=== PATIENT | female | born 2005 | race Hispanic/Latino ===

== ENCOUNTER 2024-02-08 18:21 | Emergency (ER) | payer OTHER ==
[2024-02-08 19:59] LABS: SARS-CoV-2 Antigen CONTROL BLUE LINE VIS/BG OK; SARS-CoV-2 Antigen Rapid Res Negative (Negative)
--- NOTE | 2024-02-08 21:18 | ER ---
Nurse's Notes [facility] Name: Neeta Oates Age: 18 yrs Sex: Female : 2005 Arrival Date: 02/08/2024 Time: 18:21 Bed DIS6 Private MD: Diagnosis: Cough;Acute pharyngitis, unspecified Presentation: 02/07 18:32 Chief complaint: Patient states: Fever, cough, sore throat, [place]CG[place] since Sunday. ll1 Daughter has similar symptoms. Approximately 12 weeks G2, P1. Coronavirus screen: Client denies travel out of the [place] in the last 14 days. cough unrelated to allergies, fatigue, fever, headache, muscle pain, sore throat, Client presents with at least one sign or symptom that may indicate coronavirus-19. Standard/surgical mask placed on the client. Ebola Screen: Patient denies travel to an Ebola-affected area in the 21 days before illness onset. Initial Sepsis Screen: Does the patient meet any 2 criteria? No. Patient's initial sepsis screen is negative. Does the patient have a suspected source of infection? No. Patient's initial sepsis screen is negative. Risk Assessment: Do you want to hurt yourself or someone else? Patient reports no desire to harm self or others. Onset of symptoms was February 06, 2024. 18:32 Method Of Arrival: [facility] 18:32 Acuity: KASEY 4 ll1 Historical: - Allergies: 18:26 No Known Allergies; ll1 - PMHx: 18:26 None; ll1 - PSHx: 18:26 None; ll1 - Immunization history:: Adult Immunizations up to date. - Infectious Disease History:: Denies. - Social history:: Smoking status: Patient denies any tobacco usage or history of. Screenin:10 Abuse screen: Denies threats or abuse. Denies injuries from another. jw7 19:10 [facility] ED Fall Risk Assessment (Adult) History of falling in the last 3 months, jw7 including since admission No falls in past 3 months (0 pts) Confusion or Disorientation No (0 pts) Intoxicated or Sedated No (0 pts) Impaired Gait No (0 pts) Mobility Assist Device Used No (0 pt) Altered Elimination No (0 pt) Score/Fall Risk Level 0 - 2 = Low Risk Oriented to surroundings, Maintained a safe environment. Nutritional screening: No deficits noted. Tuberculosis screening: No symptoms or risk factors identified. Assessment: 19:10 General: Appears in no apparent distress. comfortable, Behavior is calm, cooperative. jw7 Pain: Complains of pain in Throat Pain does not radiate. Pain currently is 3 out of 10 on a pain scale. Quality of pain is described as burning, Is continuous. 19:10 Neuro: Level of Consciousness is awake, alert, obeys commands, Oriented to person, jw7 place, time, situation. Cardiovascular: Heart tones S1 S2 present Capillary refill < 3 seconds Clubbing of nail beds is absent JVD is absent Patient's skin is warm and dry. Respiratory: Airway is patent Trachea midline Respiratory effort is even, unlabored, Respiratory pattern is regular, symmetrical, Breath sounds are clear bilaterally. GI: No deficits noted. No signs and/or symptoms were reported involving the gastrointestinal system. : No deficits noted. No signs and/or symptoms were reported regarding the genitourinary system. EENT: Throat is reddened has enlarged tonsils Reports Sore Throat. Derm: Skin is intact, is healthy with good turgor, Skin is dry, Skin is normal, Skin temperature is warm. Musculoskeletal: Circulation, motion, and sensation intact. Range of motion: intact in all extremities. 20:10 Reassessment: Patient appears in no apparent distress at this time. No changes from jw7 previously documented assessment. Patient and/or family updated on plan of care and expected duration. Pain level reassessed. Patient is alert, oriented x 3, equal unlabored respirations, skin warm/dry/pink. 21:10 Reassessment: Patient appears in no apparent distress at this time. No changes from jw7 previously documented assessment. Patient and/or family updated on plan of care and expected duration. Pain level reassessed. Patient is alert, oriented x 3, equal unlabored respirations, skin warm/dry/pink. Vital Signs: 18:32 BP 145 / 94; Pulse 110; Resp 18; Temp 97.4; Pulse Ox 98% ; Weight 97.98 kg; Height 5 ll1 ft. 0 in. ; Pain 8/10; 20:00 BP 147 / 90; Pulse 105; Resp 17 S; Pulse Ox 98% on R/A; jw7 21:35 BP 146 / 88; Pulse 102; Resp 17 S; Pulse Ox 99% on R/A; jw7 18:32 Body Mass Index 42.18 (97.98 kg, 152.4 cm) - Percentile 98.6 % ll1 18:32 Pain Scale: Adult ll1 ED Course: 18:23 Patient arrived in ED. rg4 18:25 Arm band placed on. ll1 18:28 Carter Lazo PA is PHCP. cp 18:28 Sherman Grullon MD is Attending Physician. cp 18:34 Triage completed. ll1 19:10 Patient has correct armband on for positive identification. Bed in low position. Call jw7 light in reach. Provided Education on: Use of Call Light. 19:23 Anne-Marie Khan, RN is Primary Nurse. jw7 21:15 Moe Hilario MD is Attending Physician. cp 21:34 No provider procedures requiring assistance completed. Patient did not have IV access jw7 during this emergency room visit. Administered Medications: No medications were administered Medication: 21:34 VIS not applicable for this client. jw7 Outcome: 21:18 Discharge ordered by . cp 21:34 Discharged to home ambulatory, jw7 21:34 Condition: stable 21:34 Discharge instructions given to patient, Instructed on discharge instructions, follow up and referral plans. Demonstrated understanding of instructions, follow-up care, 21:37 Patient left the ED. jw7 Signatures: Carter Lazo PA PA cp Garcia, Rubi rg4 Cande Salazar, PEDRO LUIS RN ll1 Anne-Marie Khan RN RN jw7
--- NOTE | 2024-02-08 21:19 | EDPHYS ---
Physician Documentation [facility] Name: Neeta Oaets Age: 18 yrs Sex: Female : 2005 Arrival Date: 02/08/2024 Time: 18:21 Bed DIS6 Private MD: ED Physician Moe Hilario HPI: 02/07 20:10 This 18 yrs old Female presents to ER via Ambulatory with complaints of Fever, cp Cough, Sore Throat. 20:10 The patient reports fever, not measured (subjective). cp 20:10 Onset: The symptoms/episode began/occurred 2 day(s) ago. Associated signs and symptoms: cp Pertinent positives: cough, sore throat, Pertinent negatives: diarrhea, skin rash, vomiting. Severity of symptoms: in the emergency department the symptoms are unchanged despite home interventions. Historical: - Allergies: 18:26 No Known Allergies; ll1 - PMHx: 18:26 None; ll1 - PSHx: 18:26 None; ll1 - Immunization history:: Adult Immunizations up to date. - Infectious Disease History:: Denies. - Social history:: Smoking status: Patient denies any tobacco usage or history of. ROS: 20:15 Constitutional: Negative for body aches, chills, fever, poor PO intake, cp 20:15 Eyes: Negative for injury, pain, redness, and discharge, cp 20:15 ENT: Positive for sore throat, Negative for drainage from ear(s), ear pain, difficulty swallowing, difficulty handling secretions, 20:15 Cardiovascular: Negative for chest pain, edema, palpitations, 20:15 Respiratory: Positive for cough, with no reported sputum, Negative for shortness of breath, wheezing, 20:15 Abdomen/GI: Negative for abdominal pain, vomiting, diarrhea, constipation, 20:15 : Negative for pelvic pain, vaginal bleeding, 20:15 Neuro: Negative for altered mental status, headache, weakness, 20:15 All other systems are negative, Exam: 20:20 Constitutional: The patient appears in no acute distress, alert, awake, non-toxic, well cp developed, well nourished, 20:20 Head/Face: Normocephalic, atraumatic. cp 20:20 Eyes: Periorbital structures: appear normal, Conjunctiva: normal, no exudate, no injection, Sclera: no appreciated abnormality, Lids and lashes: appear normal, bilaterally, 20:20 ENT: External ear(s): are unremarkable, Ear canal(s): are normal, clear, TM's: dullness, bilaterally, Nose: is normal, Mouth: Lips: moist, Oral mucosa: moist, Posterior pharynx: Airway: no evidence of obstruction, patent, Tonsils: no enlargement, no exudate, erythema, that is mild, exudate, is not appreciated, 20:20 Neck: ROM/movement: is normal, is supple, without pain, no range of motions limitations, no meningismus, Lymph nodes: no appreciated lymphadenopathy, 20:20 Chest/axilla: Inspection: normal, 20:20 Cardiovascular: Rate: tachycardic, Rhythm: regular, 20:20 Respiratory: the patient does not display signs of respiratory distress, Respirations: normal, no use of accessory muscles, no retractions, labored breathing, is not present, Breath sounds: are clear throughout, no decreased breath sounds, no stridor, no wheezing, 20:20 Abdomen/GI: Exam negative for discomfort, distension, guarding, Inspection: abdomen appears normal, 20:20 Skin: no rash present. Vital Signs: 18:32 BP 145 / 94; Pulse 110; Resp 18; Temp 97.4; Pulse Ox 98% ; Weight 97.98 kg; Height 5 ll1 ft. 0 in. ; Pain 8/10; 20:00 BP 147 / 90; Pulse 105; Resp 17 S; Pulse Ox 98% on R/A; jw7 21:35 BP 146 / 88; Pulse 102; Resp 17 S; Pulse Ox 99% on R/A; jw7 18:32 Body Mass Index 42.18 (97.98 kg, 152.4 cm) - Percentile 98.6 % ll1 18:32 Pain Scale: Adult ll1 MDM: 18:28 Patient medically screened. cp 20:10 Differential diagnosis: viral Infection, bacterial infection, bronchitis, pneumonia cp gastroenteritis, meningitis. 21:17 Data reviewed: vital signs, nurses notes, lab test result(s), and as a result, I will cp discharge patient. 21:17 Counseling: I had a detailed discussion with the patient and/or guardian regarding the cp historical points, exam findings, and any diagnostic results supporting the discharge/admit diagnosis, lab results, to return to the emergency department if symptoms worsen or persist or if there are any questions or concerns that arise at home. 02/07 19:13 Order name: Influenza Screen (a \T\ B) cp 02/07 19:13 Order name: Strep cp 02/07 19:13 Order name: RSV cp 02/07 19:13 Order name: SARS RAPID cp 02/07 20:05 Order name: Throat Culture EDMS Administered Medications: No medications were administered Disposition Summary: 02/08/24 21:18 Discharge Ordered Notes: Location: Home cp Problem: new cp Symptoms: have improved cp Condition: Stable cp Diagnosis - Cough cp - Acute pharyngitis, unspecified cp Followup: cp - With: Private Physician - When: 2 - 3 days - Reason: Worsening of condition Discharge Instructions: - Discharge Summary Sheet cp - Pharyngitis cp - Cough, Adult cp Forms: - Medication Reconciliation Form cp - Thank You Letter cp - Antibiotic Education cp - Prescription Opioid Use cp - Patient Portal Instructions cp - Leadership Thank You Letter cp Addendum: 02/10/2024 00:14 Co-signature as Attending Physician, Moe Hilario MD I reviewed the patient's care r t provided by the Advanced Practice Provider and agree with the diagnosis and treatment plan. Signatures: Dispatcher [employer] EDMS Carter Lazo PA PA cp Cande Salazar RN RN ll1 Anne-Marie Khan RN RN jw7 Moe Hilario MD MD rt Corrections: (The following items were deleted from the chart) 02/07 19:14 19:14 Influenza Screen (A \T\ B)+BA.LAB.BRZ ordered. EDMS EDMS 19:14 19:14 Group A Streptococcus Rapid Sc+BA.LAB.BRZ ordered. EDMS EDMS 19:14 19:14 Respiratory Syncytial Virus Ag+BA.LAB.BRZ ordered. EDMS EDMS 19:14 19:14 SARS-COV-2 Antigen Rapid+I.LAB.BRZ ordered. EDMS EDMS
[2024-02-09 02:30] VITALS: BP 146/88; TEMP 97.4; O2SAT 99
== END 2024-02-08 21:37 | disposition home or self-care (01) ==
LOC: ER 18:21
DX: R05.9 Cough, unspecified (principal); J02.9 Acute pharyngitis, unspecified; Z11.52 Encounter for screening for COVID-19
CPT/HCPCS: 36415; 87070; 87081; 87804; 87807; 87811; 99283